=== PATIENT | female | born 1995 | race Caucasian/White ===

== ENCOUNTER 2017-10-25 09:31 | Emergency (ER) | payer OTHER ==
[~2017-10-25] VITALS: Ht 160 cm; Wt 49.9 kg
[~2017-10-25 09:31] MED LIST: AMOX1TAB25 PO; ASPI325T8 PO; DOXY50CA PO; IBUP400T18 PO; ONDA4TAB7 PO
[2017-10-25 09:39] VITALS: BP 168/89
[2017-10-25] MEDS ORDERED: IV NORMAL SALINE 1,000ML 1,000 ML IV SCH (09:57)
[2017-10-25] MEDS ORDERED: 0.9 % SODIUM CHLORIDE 10 ML DISP.SYRIN. IV PRN (10:00)
--- NOTE | 2017-10-25 10:00 | PHYS DOC ---
Past History Past Medical History: Asthma Past Surgical History: No Surgical History Smoking: Cigarettes Alcohol Use: Occasionally Drug Use: Benzodiazepine, Marijuana Adult General Chief Complaint Chief Complaint: nausea and vomiting HPI HPI 22-year-old female patient states she ate some sausage and egg at 2 AM and had multiple episodes of nonbloody vomiting with bile since 8 PM. Patient states she had 5 or 6 episodes of vomiting with epigastric cramping pain during episodes of vomiting with radiation to her back. Patient denies diarrhea and urinary symptom and and sick contacts and history of the same problem. Review of Systems Review of Systems Constitutional: Denies fever or chills [] Eyes: Denies change in visual acuity, redness, or eye pain [] HENT: Denies nasal congestion or sore throat [] Respiratory: Denies cough or shortness of breath [] Cardiovascular: No additional information not addressed in HPI [] GI: Reports abdominal pain, nausea, vomiting, denies bloody stools or diarrhea [ ] : Denies dysuria or hematuria [] Musculoskeletal: Denies back pain or joint pain [] Integument: Denies rash or skin lesions [] Neurologic: Denies headache, focal weakness or sensory changes [] Endocrine: Denies polyuria or polydipsia [] All other systems were reviewed and found to be within normal limits, except as documented in this note. Current Medications Current Medications Current Medications Medications (Trade) Dose Ordered Sig/Raissa Start Time Stop Time Status Last Admin Dose Admin Ondansetron HCl (Zofran) 4 mg 1X ONCE 10/25/17 10:00 10/25/17 10:01 UNV Sodium Chloride (Normal Saline Flush) 10 ml QSHIFT PRN 10/25/17 10:00 UNV Allergies Allergies Allergies Coded Allergies Type Severity Reaction Last Updated Verified No Known Drug Allergies 06/12/14 No Physical Exam Physical Exam Constitutional: Moderate distress, non-toxic appearance, anxious. [] HENT: Normocephalic, atraumatic, bilateral external ears normal, oropharynx moist, no oral exudates, nose normal. [] Eyes: PERRLA, EOMI, conjunctiva normal, no discharge. [] Neck: Normal range of motion, no tenderness, supple, no stridor. [] Cardiovascular:Heart rate regular rhythm, no murmur [] Lungs & Thorax: Bilateral breath sounds clear to auscultation [] Abdomen: Bowel sounds normal, soft, no tenderness, no masses, no pulsatile masses. [] Skin: Warm, dry, no erythema, no rash. [] Back: No tenderness, no CVA tenderness. [] Extremities: No tenderness, no cyanosis, no clubbing, ROM intact, no edema. [] Neurologic: Alert and oriented X 3, normal motor function, normal sensory function, no focal deficits noted. [] Psychologic: Anxious Current Patient Data Vital Signs Vital Signs Date Time Temp Pulse Resp B/P (MAP) Pulse Ox O2 Delivery O2 Flow Rate FiO2 10/25/17 09:39 97.8 98 16 100 Room Air Lab Results Laboratory Tests Test 10/25/17 09:46 POC Urine HCG, Qualitative hcg negative (Negative) EKG EKG [] Radiology/Procedures Radiology/Procedures []PATIENT: FRAN MONTE ACCOUNT: [id number] : 1995 LOCATION: ER AGE: 22 SEX: F EXAM STATUS: REG ER ORD. PHYSICIAN: RUTHANN MONTENEGRO MD REASON: similar pain, nausea and vomiting, leukocytosis PROCEDURE: CT ABDOMEN PELVIS WO CONTRAST Indication: Abdominal pain and vomiting for one day with leukocytosis. Technique: Axial images and coronal and sagittal reformatted images are provided. Comparison is from June 28, 2014. One or more of the following individualized dose reduction techniques were utilized for this examination: 1. Automated exposure control 2. Adjustment of the mA and/or kV according to patient size 3. Use of iterative reconstruction technique Findings: The lung bases are clear. There is no pleural effusion. The heart is not enlarged. Solid organ evaluation is limited without contrast. Liver, gallbladder, spleen, pancreas, and adrenals are all grossly unremarkable. There is a punctate nonobstructing right renal calculus. There is a 2 mm nonobstructing left renal calculus as well as additional punctate calculi on the left. Neither ureter is dilated or able to be followed in its entirety, no calculus along the expected course of either ureter is apparent. Aorta is normal caliber. Lack of IV or oral contrast limits evaluation of bowel. There is no small bowel obstruction or mural thickening. Appendix is not confidently visualized. Colon is grossly unremarkable. There is no bladder calculus. There is no adnexal mass. Free pelvic fluid is minimal and may be physiologic. Bony structures are intact. Impression: 1. No acute abdominal findings. 2. Nonobstructing renal calculi. No obstructing calculus. DICTATED AND SIGNED BY: YASIR DOVE MD DATE: 10/25/17 1143 CC: RUTHANN MONTENEGRO MD; ROLAND ROSALES ~ Course & Med Decision Making Course & Med Decision Making Pertinent Labs and Imaging studies reviewed. (See chart for details) Evaluation of patient in ER showed 22-year-old male patient with complaining of multiple episodes of vomiting and upper abdominal pain since this morning. Patient was anxious at arrival to ER and felt better with IV fluid and Zofran and Reglan. White count was 23,[address] abdomen and pelvis was unremarkable therefore accidental renal calculi. Patient had 1 episode of diarrhea while she was in ER. Patient tolerated oral intake. Plan discharge patient home to diagnose of acute gastroenteritis. Dragon Disclaimer Dragon Disclaimer This electronic medical record was generated, in whole or in part, using a voice recognition dictation system. Departure Departure: Impression: Primary Impression: Acute gastroenteritis Additional Impressions: Renal calculi Tobacco abuse Tobacco abuse counseling Marijuana abuse Leukocytosis Disposition: HOME, SELF-CARE (at 1158) Condition: IMPROVED Referrals: ROLAND ROSALES (PCP) Patient Instructions: Smoking Cessation, Viral Gastroenteritis Additional Instructions: Take liquid diet for the next 24 hours follow-up with your primary care physician in 2 or 3 days Return to emergency room if not getting better Problem Qualifiers RTUHANN MONTENEGRO MD Oct 25, 2017 09:59
[2017-10-25] MEDS ORDERED: ONDANSETRON PF 4 MG/2 ML VIAL. ONE (10:03)
[2017-10-25 10:14] LABS: BASO # 0.1 x10^3/uL (0.0-0.2); BASO % 0 % (0-3); EOS # 0.1 x10^3/uL (0.0-0.7); EOS % 0 % (0-3); HEMATOCRIT 50.2 % (36.0-47.0); HEMOGLOBIN 17.1 g/dL (12.0-15.5); LYMPH # 1.9 x10^3/uL (1.0-4.8); LYMPH % 8 % (24-48); MEAN CORPUSCULAR HEMOGLOBIN 32 pg (25-35); MEAN CORPUSCULAR HGB CONC 34 g/dL (31-37); MEAN CORPUSCULAR VOLUME 93 fL (79-100); MONO # 1.9 x10^3/uL (0.0-1.1); MONO % 8 % (0-9); NEUT # 19.6 x10^3uL (1.8-7.7); NEUT % 83 % (31-73); PLATELET COUNT 366 x10^3/uL (140-400); RED BLOOD COUNT 5.39 x10^6/uL (3.50-5.40); RED CELL DISTRIBUTION WIDTH 14.2 % (11.5-14.5); WHITE BLOOD COUNT 23.6 x10^3/uL (4.0-11.0)
[2017-10-25] MEDS ORDERED: ONDANSETRON PF 4 MG/2 ML VIAL. IV ONE (10:15)
[2017-10-25 10:22] LABS: BILIRUBIN,URINE NEG (NEG); CLARITY,URINE CLOUDY; COLOR,URINE YELLOW; GLUCOSE,URINE NEG (NEG)
[2017-10-25 10:23] LABS: AMORPHOUS SEDIMENT,UR PRESENT /HPF; BACTERIA,URINE 0 /HPF (0-FEW); NITRITE,URINE NEG (NEG); RBC,URINE 0 /HPF (0-2); SQUAMOUS EPITHELIAL CELL,UR OCC /LPF; UROBILINOGEN,URINE 0.2 mg/dL (0.2 mg/dL); WBC,URINE 0 /HPF (0-4)
[2017-10-25 10:40] LABS: AMPHETAMINE/METHAMPHETAMINE NEG (NEG); BARBITURATES NEG (NEG); BENZODIAZEPINES NEG (NEG); CANNABINOIDS POS (NEG); COCAINE NEG (NEG); METHADONE NEG (NEG); OPIATES NEG (NEG); PHENCYCLIDINE NEG (NEG)
[2017-10-25 10:41] LABS: ALBUMIN 4.6 g/dL (3.4-5.0); CREATININE 0.7 mg/dL (0.6-1.0); GFR 104.6; POTASSIUM 4.2 mmol/L (3.5-5.1); TOTAL BILIRUBIN 0.5 mg/dL (0.2-1.0); TOTAL PROTEIN 9.1 g/dL (6.4-8.2)
[2017-10-25] MEDS ORDERED: METOCLOPRAMIDE HCL 10 MG/2 ML VIAL. IV ONE (11:30)
--- NOTE | 2017-10-25 11:50 | RAD ---
Indication: Abdominal pain and vomiting for one day with leukocytosis. Technique: Axial images and coronal and sagittal reformatted images are provided. Comparison is from June 28, 2014. One or more of the following individualized dose reduction techniques were utilized for this examination: 1. Automated exposure control 2. Adjustment of the mA and/or kV according to patient size 3. Use of iterative reconstruction technique Findings: The lung bases are clear. There is no pleural effusion. The heart is not enlarged. Solid organ evaluation is limited without contrast. Liver, gallbladder, spleen, pancreas, and adrenals are all grossly unremarkable. There is a punctate nonobstructing right renal calculus. There is a 2 mm nonobstructing left renal calculus as well as additional punctate calculi on the left. Neither ureter is dilated or able to be followed in its entirety, no calculus along the expected course of either ureter is apparent. Aorta is normal caliber. Lack of IV or oral contrast limits evaluation of bowel. There is no small bowel obstruction or mural thickening. Appendix is not confidently visualized. Colon is grossly unremarkable. There is no bladder calculus. There is no adnexal mass. Free pelvic fluid is minimal and may be physiologic. Bony structures are intact. Impression: 1. No acute abdominal findings. 2. Nonobstructing renal calculi. No obstructing calculus.
[2017-10-25 11:53] LABS: % BANDS 12 % (0-9); % BASOS 1 % (0-3); % EOS 0 % (0-5); % LYMPHS 12 % (24-48); % MONOS 8 % (0-10); % SEGS 67 % (35-66); PLT ESTIMATE ADEQUATE (ADEQUATE); TOXIC GRANULATION PRESENT; TOXIC VACUOLATION PRESENT
[2017-10-25] MEDS ORDERED: ONDA4TAB10 SL (12:02)
== END 2017-10-25 12:41 | disposition home or self-care (01) ==
LOC: ER 09:31
DX: K52.89 Other specified noninfective gastroenteritis and colitis (principal); N20.0 Calculus of kidney; F17.210 Nicotine dependence, cigarettes, uncomplicated; D72.829 Elevated white blood cell count, unspecified; J45.909 Unspecified asthma, uncomplicated; F15.10 Other stimulant abuse, uncomplicated; F12.10 Cannabis abuse, uncomplicated; Z71.6 Tobacco abuse counseling
CPT/HCPCS: 36415; 74176; 80053; 80307; 81001; 81025; 83690; 85007; 85025; 96361; 96374; 96375; 99285; J2405; J2765; G0479; J7030

== ENCOUNTER 2018-01-31 17:19 | Emergency (ER) | payer OTHER ==
[~2018-01-31] VITALS: Ht 160 cm; Wt 49.9 kg
[~2018-01-31 17:19] MED LIST changes: +ONDA4TAB10 SL
[2018-01-31 17:22] VITALS: BP 157/75
[2018-01-31] MEDS ORDERED: HYDROcodone/APAP 5/325MG 1 TAB TABLET PO ONE (17:30)
--- NOTE | 2018-01-31 17:41 | PHYS DOC ---
Past History Past Medical History: Asthma Past Surgical History: No Surgical History Smoking: Cigarettes Alcohol Use: Occasionally Drug Use: Benzodiazepine, Marijuana Adult General Chief Complaint Chief Complaint: ABDOMINAL PAIN [facility] HPI 22-year-old female patient complaining of sharp left lower quadrant pain since yesterday that getting worse with urination. Patient complaining of urinary frequency and dysuria and radiation of pain to her pelvis and back. Patient rated her pain 9/10 and states she took Excedrin and Tylenol without improvement of her pain. Patient states she had negative home test today and her LMP was January 05. Patient complaining of nausea without vomiting and states she had a bowel movement today without change of her pain. Patient denies vaginal bleeding or discharge and pain during intercourse. Review of Systems Review of Systems Constitutional: Denies fever or chills [] Eyes: Denies change in visual acuity, redness, or eye pain [] HENT: Denies nasal congestion or sore throat [] Respiratory: Denies cough or shortness of breath [] Cardiovascular: No additional information not addressed in HPI [] GI: Reports abdominal pain, nausea, denies vomiting, bloody stools or diarrhea [ ] : Reports dysuria and urinary frequency Musculoskeletal: Denies back pain or joint pain [] Integument: Denies rash or skin lesions [] Neurologic: Denies headache, focal weakness or sensory changes [] Endocrine: Denies polyuria or polydipsia [] All other systems were reviewed and found to be within normal limits, except as documented in this note. Current Medications Current Medications Current Medications Medications (Trade) Dose Ordered Sig/Raissa Start Time Stop Time Status Last Admin Dose Admin Acetaminophen/ Hydrocodone Bitart (Lortab 5/325) 1 tab 1X ONCE 01/31/18 17:30 01/31/18 17:31 UNV Allergies Allergies Allergies Coded Allergies Type Severity Reaction Last Updated Verified No Known Drug Allergies 06/12/14 No Physical Exam Physical Exam Constitutional: Well developed, well nourished, moderate distress, non-toxic appearance. [] HENT: Normocephalic, atraumatic, oropharynx moist, no oral exudates, nose normal. [] Eyes: PERRLA, EOMI, conjunctiva normal, no discharge. [] Neck: Normal range of motion, no tenderness, supple, no stridor. [] Cardiovascular:Heart rate regular rhythm, no murmur [] Lungs & Thorax: Bilateral breath sounds clear to auscultation [] Abdomen: Bowel sounds normal, soft, no tenderness, no masses, no pulsatile masses. [] Skin: Warm, dry, no erythema, no rash. [] Back: No tenderness, no CVA tenderness. [] Extremities: No tenderness, no cyanosis, no clubbing, ROM intact, no edema. [] Neurologic: Alert and oriented X 3, normal motor function, normal sensory function, no focal deficits noted. [] Psychologic: Anxious, judgement normal, mood normal. [] EKG EKG [] Radiology/Procedures Radiology/Procedures [CT abdomen pelvis: 4 mm UV left UVJ stone or radiology report] Course & Med Decision Making Course & Med Decision Making Pertinent Labs and Imaging studies are pending. Patient care transferred to Dr. Jack at 1800 Lab work, imaging studies reviewed. Findings consistent with single acute uncomplicated distal left ureteral stone. Symptoms resolved while in the emergency department. Recommend continued supportive care with PCP follow-up. Return precautions reviewed. Dragon Disclaimer Dragon Disclaimer This electronic medical record was generated, in whole or in part, using a voice recognition dictation system. Departure Departure: Impression: Primary Impression: Ureteral stone Additional Impression: Left lower quadrant pain Disposition: 01 HOME, SELF-CARE Condition: GOOD Referrals: ROLAND ROSALES (PCP) Patient Instructions: Kidney Stones, [id number] Additional Instructions: You were evaluated emergency department for left pelvic pain. CT was performed and shows a 4 mm stone just above your bladder. Please increase fluids and strain urine for passage of stone. In the meantime, take pain and nausea medication and Flomax as directed. Follow up with your PCP in 2-3 days if symptoms persist. Return to the ED if new or worsening symptoms Problem Qualifiers RUTHANN MONTENEGRO MD January 31, 2018 17:41 MARYBETH JACK DO January 31, 2018 19:37
[2018-01-31] MEDS ORDERED: KETOROLAC 30 MG/ML VIAL. ONE (17:53)
[2018-01-31] MEDS ORDERED: IV NORMAL SALINE 1,000ML 1,000 ML IV ONE (18:00)
[2018-01-31] MEDS ORDERED: KETOROLAC 30 MG/ML VIAL. IV ONE (18:00)
[2018-01-31] MEDS ORDERED: ONDANSETRON PF 4 MG/2 ML VIAL. IV ONE ×2 (18:00→19:30)
[2018-01-31 18:23] LABS: BASO % 1 % (0-3); EOS % 0 % (0-3); HEMATOCRIT 38.9 % (36.0-47.0); HEMOGLOBIN 13.7 g/dL (12.0-15.5); LYMPH # 2.2 x10^3/uL (1.0-4.8); LYMPH % 29 % (24-48); MEAN CORPUSCULAR HEMOGLOBIN 32 pg (25-35); MEAN CORPUSCULAR HGB CONC 35 g/dL (31-37); MEAN CORPUSCULAR VOLUME 91 fL (79-100); MONO # 0.7 x10^3/uL (0.0-1.1); MONO % 10 % (0-9); NEUT # 4.6 x10^3uL (1.8-7.7); NEUT % 60 % (31-73); PLATELET COUNT 286 x10^3/uL (140-400); RED BLOOD COUNT 4.26 x10^6/uL (3.50-5.40); RED CELL DISTRIBUTION WIDTH 13.2 % (11.5-14.5); WHITE BLOOD COUNT 7.6 x10^3/uL (4.0-11.0)
[2018-01-31 18:38] LABS: ALBUMIN/GLOBULIN RATIO 1.2 (1.0-1.7); CALCIUM 8.7 mg/dL (8.5-10.1); CREATININE 0.6 mg/dL (0.6-1.0); POTASSIUM 3.4 mmol/L (3.5-5.1); TOTAL BILIRUBIN 0.8 mg/dL (0.2-1.0); TOTAL PROTEIN 7.3 g/dL (6.4-8.2)
--- NOTE | 2018-01-31 18:41 | RAD ---
Indication: Left lower quadrant pain, history of renal stones. Technique: Axial images and coronal and sagittal reformatted images are provided. Comparison is from October 25, 2017. One or more of the following individualized dose reduction techniques were utilized for this examination: 1. Automated exposure control 2. Adjustment of the mA and/or kV according to patient size 3. Use of iterative reconstruction technique Findings: Lung bases are clear. There is no pleural effusion. Heart is not enlarged. Solid organ evaluation is limited without contrast. Liver, gallbladder, spleen, pancreas, and adrenals are all grossly unremarkable. Nonobstructing calculus in the right kidney measures 3 mm. The left ureter is difficult to follow. There is no stranding of the left periureteral fat. There was a stone in the left kidney on prior study that is no longer visualized. There is a calculus in the pelvis on the left which could be at the UVJ and was not present on the September study, making this stone highly suspicious for a ureteral stone. This stone measures 4 mm. Again, the ureter is not clearly dilated proximal to this suspected ureteral stone. Aorta is normal caliber. Lack of oral contrast and IV contrast limits evaluation of bowel, there is no obvious bowel pathology. Appendix is probably visualized. Bladder is decompressed. There is no adnexal mass. Bony structures are intact. IMPRESSION: 1. There is a new stone in the pelvis on the left measuring 4 mm. This is suspected to be a left UVJ stone, although it is not possible to follow the left ureter on the current study. The left ureter is not clearly dilated. 2. There is a nonobstructing 3 mm right renal stone. Electronically signed by: Ajay Medeiros MD (01/31/2018 6:38 PM) [facility]
[2018-01-31 20:24] LABS: CLARITY,URINE TURBID; COLOR,URINE AMBER; GLUCOSE,URINE NEG (NEG)
[2018-01-31 20:25] LABS: BILIRUBIN,URINE SMALL (NEG); NITRITE,URINE NEG (NEG); UROBILINOGEN,URINE 0.2 mg/dL (0.2 mg/dL)
== END 2018-01-31 20:02 | disposition home or self-care (01) ==
LOC: ER 17:19
DX: N20.1 Calculus of ureter (principal); J45.909 Unspecified asthma, uncomplicated; F17.210 Nicotine dependence, cigarettes, uncomplicated; F12.10 Cannabis abuse, uncomplicated; F19.10 Other psychoactive substance abuse, uncomplicated
CPT/HCPCS: 36415; 74176; 80053; 81003; 81025; 83690; 85025; 96374; 96375; 96376; 99285; J1885; J2405; J3010; J7030

== ENCOUNTER 2018-06-14 11:12 | Emergency (ER) | payer OTHER ==
--- NOTE | 2018-06-14 11:42 | PHYS DOC ---
Past History Past Medical History: Endometriosis Past Surgical History: No Surgical History Smoking: Cigarettes Alcohol Use: None Drug Use: Marijuana Adult General Chief Complaint Chief Complaint: ABDOMINAL PAIN IN HPI HPI Patient is a 23-year-old white female, prima gravid, who states she is approximately 5 months , who presents to the emergency department for evaluation. She states she awakened with left upper quadrant abdominal pain this morning. She has not had any vomiting. She has had she has had some nausea throughout her , but has been taking anti-medic prescribed by her OB doctor, which has been helping her symptoms. She has not had any urinary symptoms. She states she has had gallbladder problems in the past and had evaluation of her gallbladder, but her symptoms were right-sided dose prior episodes. She has not noticed any alleviating or exacerbating factors to her symptoms. The patient has not had any lower abdominal pain or pelvic pain, vaginal bleeding, or discharge. Review of Systems Review of Systems Constitutional: Denies fever or chills [] Eyes: Denies change in visual acuity, redness, or eye pain [] HENT: Denies nasal congestion or sore throat [] Respiratory: Denies cough or shortness of breath [] Cardiovascular: The patient denies any shortness of breath, chest pain, palpitations, or orthopnea [] GI: No additional information not addressed in HPI [] : Denies dysuria or hematuria [] Musculoskeletal: Denies back pain or joint pain [] Integument: Denies rash or skin lesions [] Neurologic: Denies headache, focal weakness or sensory changes [] Endocrine: Denies polyuria or polydipsia [] All other systems were reviewed and found to be within normal limits, except as documented in this note. Allergies Allergies Allergies Coded Allergies Type Severity Reaction Last Updated Verified No Known Drug Allergies 06/12/14 No Physical Exam Physical Exam PHYSICAL EXAM: CONSTITUTIONAL: Well developed, well nourished HEAD: normocephalic, atraumatic EENT: PERRL, EOMI. Conjunctivae normal color, sclerae non-icteric; moist mucous membranes. NECK: Supple, non-tender; no meningismus. LUNGS: Lungs CTA, breathing even and unlabored. Normal air movement. HEART: Regular rate and rhythm, no murmur CHEST: No deformity; non-tender ABDOMEN: The abdomen is soft, there is mild epigastric tenderness to palpation in left upper abdominal tenderness to palpation, the right upper quadrant is nontender. The lower abdomen is soft and nontender. The uterus is palpable in the lower abdomen and is non-tender, no masses or bruits. Normal bowel sounds are present. EXTREM: Normal ROM; no deformity, no calf tenderness. Normal pulses palpable in all extremities. There is no pedal edema. SKIN: No rash; no diaphoresis NEURO: Alert; normal speech and cognition; CN's grossly intact; strength grossly intact without focal deficit. BACK: No CVA TTP. Current Patient Data Lab Results Laboratory Tests Test 06/14/18 11:55 White Blood Count 7.3 x10^3/uL Red Blood Count 3.68 x10^6/uL Hemoglobin 11.9 g/dL Hematocrit 34.0 % Mean Corpuscular Volume 92 fL Mean Corpuscular Hemoglobin 32 pg Mean Corpuscular Hemoglobin Concent 35 g/dL Red Cell Distribution Width 13.2 % Platelet Count 214 x10^3/uL Neutrophils (%) (Auto) 74 % Lymphocytes (%) (Auto) 16 % Monocytes (%) (Auto) 9 % Eosinophils (%) (Auto) 1 % Basophils (%) (Auto) 0 % Neutrophils # (Auto) 5.4 x10^3uL Lymphocytes # (Auto) 1.2 x10^3/uL Monocytes # (Auto) 0.6 x10^3/uL Eosinophils # (Auto) 0.1 x10^3/uL Basophils # (Auto) 0.0 x10^3/uL Urine Collection Type Void Urine Color Yellow Urine Clarity Cloudy Urine pH 8.5 Urine Specific Center 1.015 Urine Protein Neg Urine Glucose (UA) Neg mg/dL Urine Ketones (Stick) Neg mg/dL Urine Blood Neg Urine Nitrite Neg Urine Bilirubin Neg Urine Urobilinogen Dipstick 0.2 mg/dL Urine Leukocyte Esterase Neg Urine RBC 1-2 /HPF Urine WBC 1-4 /HPF Urine Squamous Epithelial Cells Many /LPF Urine Bacteria Few /HPF Urine Hyaline Casts Occ /HPF Urine Mucus Slight /LPF Sodium Level 137 mmol/L Potassium Level 3.6 mmol/L Chloride Level 105 mmol/L Carbon Dioxide Level 25 mmol/L Anion Gap 7 Blood Urea Nitrogen 6 mg/dL Creatinine 0.5 mg/dL Estimated GFR (Cockcroft-Gault) 152.9 BUN/Creatinine Ratio 12 Glucose Level 90 mg/dL Calcium Level 8.7 mg/dL Total Bilirubin 0.2 mg/dL Aspartate Amino Transf (AST/SGOT) 18 U/L Alanine Aminotransferase (ALT/SGPT) 25 U/L Alkaline Phosphatase 63 U/L Total Protein 6.4 g/dL Albumin 3.0 g/dL Albumin/Globulin Ratio 0.9 Lipase 108 U/L Current Medications Medications (Trade) Dose Ordered Sig/Raissa Route PRN Reason Start Time Stop Time Status Last Admin Dose Admin Multi-Ingredient Mouthwash/Gargle (Gi Cocktail) 20 ml 1X ONCE PO 06/14/18 12:00 06/14/18 12:01 DC 06/14/18 11:51 EKG EKG [] Radiology/Procedures Radiology/Procedures [] Course & Med Decision Making Course & Med Decision Making Pertinent Lab studies reviewed. (See chart for details) [12:45 PM: The patient's condition remained stable. She had improvement in her symptoms with GI cocktail. She has not eaten anything today suspect this might be contributing to her symptoms, and I encouraged her to do so after hospital discharge. I discussed importance of close follow-up and return precautions, use of acetaminophen as needed for pain, and possible therapeutic trial of antiacids if symptoms persist.] Dragon Disclaimer Dragon Disclaimer This electronic medical record was generated, in whole or in part, using a voice recognition dictation system. Departure Departure: Impression: Primary Impression: Left upper quadrant abdominal pain of unknown etiology Additional Impression: Disposition: HOME, SELF-CARE Condition: STABLE Referrals: ROLAND ROSALES (PCP) Patient Instructions: Abdominal Pain, Gastritis, Adult Problem Qualifiers SANTY HUGGINS MD Jun 14, 2018 11:42
[2018-06-14] MEDS ORDERED: LIDO:MAALOX 1:1 20 ML SINGLE DOSE. PO ONE (12:00)
[2018-06-14 12:09] LABS: BASO % 0 % (0-3); EOS # 0.1 x10^3/uL (0.0-0.7); EOS % 1 % (0-3); HEMOGLOBIN 11.9 g/dL (12.0-15.5); LYMPH # 1.2 x10^3/uL (1.0-4.8); LYMPH % 16 % (24-48); MEAN CORPUSCULAR HEMOGLOBIN 32 pg (25-35); MEAN CORPUSCULAR HGB CONC 35 g/dL (31-37); MEAN CORPUSCULAR VOLUME 92 fL (79-100); MONO # 0.6 x10^3/uL (0.0-1.1); MONO % 9 % (0-9); NEUT # 5.4 x10^3uL (1.8-7.7); NEUT % 74 % (31-73); PLATELET COUNT 214 x10^3/uL (140-400); RED BLOOD COUNT 3.68 x10^6/uL (3.50-5.40); RED CELL DISTRIBUTION WIDTH 13.2 % (11.5-14.5); WHITE BLOOD COUNT 7.3 x10^3/uL (4.0-11.0)
[2018-06-14 12:17] LABS: BACTERIA,URINE FEW /HPF (0-FEW); BILIRUBIN,URINE NEG (NEG); CLARITY,URINE CLOUDY; COLOR,URINE YELLOW; GLUCOSE,URINE NEG (NEG); NITRITE,URINE NEG (NEG); SQUAMOUS EPITHELIAL CELL,UR MANY /LPF; UROBILINOGEN,URINE 0.2 mg/dL (0.2 mg/dL)
[2018-06-14 12:18] LABS: HYALINE CASTS, URINE OCC /HPF
[2018-06-14 12:23] LABS: ALBUMIN/GLOBULIN RATIO 0.9 (1.0-1.7); CALCIUM 8.7 mg/dL (8.5-10.1); CREATININE 0.5 mg/dL (0.6-1.0); GFR 152.9; POTASSIUM 3.6 mmol/L (3.5-5.1); TOTAL BILIRUBIN 0.2 mg/dL (0.2-1.0); TOTAL PROTEIN 6.4 g/dL (6.4-8.2)
[2018-06-14 12:54] VITALS: BP 121/60
== END 2018-06-14 12:54 | disposition home or self-care (01) ==
LOC: ER 11:12
DX: O26.892 Other specified pregnancy related conditions, second trimester (principal); R10.12 Left upper quadrant pain; R11.0 Nausea; O99.332 Smoking (tobacco) complicating pregnancy, second trimester; Z3A.00 Weeks of gestation of pregnancy not specified
CPT/HCPCS: 36415; 80053; 81001; 83690; 85025; 99284

== ENCOUNTER 2019-06-18 15:21 | Emergency (ER) | payer OTHER ==
[2019-06-18 15:45] VITALS: BP 138/66
--- NOTE | 2019-06-18 15:55 | PHYS DOC ---
Past History Past Medical History: No Pertinent History Past Surgical History: No Surgical History Smoking: Cigarettes Alcohol Use: None Drug Use: None Adult General Chief Complaint Chief Complaint: VAGINAL BLEEDING HPI HPI Patient is a 24-year-old female presents with vaginal bleeding that started just prior to arrival. Patient is �0�1�1 with a miscarriage of her first . She is approximately 12 weeks . She has been having lower abdominal cramping for the past day. She has occasional nausea but it is improved with her nausea medicines. No previous surgical history. Bleeding is improving over time. There was no tissue or clots in the blood. No dysuria or hematuria. No fever. No trauma. Cramping is mild to moderate in intensity.[] Review of Systems Review of Systems Constitutional: Denies fever or chills [] Eyes: Denies change in visual acuity, redness, or eye pain [] HENT: Denies nasal congestion or sore throat [] Respiratory: Denies cough or shortness of breath [] Cardiovascular: No chest pain or palpitations[] GI: Denies abdominal pain, nausea, vomiting, bloody stools or diarrhea [] : Denies dysuria or hematuria, see history of present illness [] Musculoskeletal: Denies back pain or joint pain [] Integument: Denies rash or skin lesions [] Neurologic: Denies headache, focal weakness or sensory changes [] Endocrine: Denies polyuria or polydipsia [] All other systems were reviewed and found to be within normal limits, except as documented in this note. Allergies Allergies Allergies Coded Allergies Type Severity Reaction Last Updated Verified No Known Drug Allergies 06/12/14 No Physical Exam Physical Exam Constitutional: Well developed, well nourished, no acute distress, non-toxic appearance. [] HENT: Normocephalic, atraumatic, bilateral external ears normal, oropharynx moist, no oral exudates, nose normal. [] Eyes: PERRLA, EOMI, conjunctiva normal, no discharge. [] Neck: Normal range of motion, no tenderness, supple, no stridor. [] Cardiovascular:Heart rate regular rhythm, no murmur [] Lungs & Thorax: Bilateral breath sounds clear to auscultation [] Abdomen: Bowel sounds normal, soft, no tenderness, fundus just above the pelvic inlet, no pulsatile masses. exam performed with [employer] regional sales manager: External genitalia, Elnora's glands, urethra, Bartholin's glands: normal, no rash. Vaginal vault: No blood or tissue in the vault, no lesions. Cervix: Parous os, no cervical motion tenderness, os is closed, no blood from the os[] Skin: Warm, dry, no erythema, no rash. [] Back: No tenderness, no CVA tenderness. [] Extremities: No tenderness, no cyanosis, no clubbing, ROM intact, no edema. [] Neurologic: Alert and oriented X 3, normal motor function, normal sensory function, no focal deficits noted. [] Psychologic: Affect normal, judgement normal, mood normal. [] Current Patient Data Vital Signs Vital Signs Date Time Temp Pulse Resp B/P (MAP) Pulse Ox O2 Delivery O2 Flow Rate FiO2 06/18/19 15:45 96 18 99 Room Air EKG EKG [] Radiology/Procedures Radiology/Procedures PROCEDURE: PREG 1ST TRIMESTER Obstetrical ultrasound 06/18/2019. Reason for exam: Vaginal bleeding. FINDINGS: A living intrauterine fetus is demonstrated, showing heart rate of 163 bpm. No gross anomaly is seen. Amniotic fluid volume appears appropriate. The placenta is located posteriorly and does not reach the cervix. No retroplacental bleeding is seen. There is no evidence of placenta previa. Cervical length is about 4.5 cm. There may be a trace of blood in the cervical canal. The ovaries appear normal. There is no apparent adnexal mass or free fluid. The following age estimates were obtained: BPD: 13 weeks 4 days. HC: 13 weeks 4 days. AC: 13 weeks 3 days. FL: 12 weeks 5 days. Average ultrasound estimated is 13 weeks 2 days, giving TANA of 12/22/2019. IMPRESSION: Living intrauterine fetus. No identified cause for bleeding. [] Course & Med Decision Making Course & Med Decision Making Pertinent Labs and Imaging studies reviewed. (See chart for details) ED course: Patient arrived, was placed in bed, and tolerated exam well. She was transported to and from [facility] with any complications. After the return of laboratory and imaging findings, these were discussed with the patient who voiced understanding. All questions were answered. She was discharged in improved condition. Medical decision making: There is no evidence of an ectopic , no evidence of placenta previa or abruption. No evidence of Rh incompatibility, no evidence of HELLP syndrome, no missed miscarriage, no blood was noted in the vaginal vault.[] Dragon Disclaimer Dragon Disclaimer This electronic medical record was generated, in whole or in part, using a voice recognition dictation system. Departure Departure: Impression: Primary Impression: Threatened miscarriage Disposition: HOME, SELF-CARE Condition: IMPROVED Referrals: ROLAND ROSALES (PCP) Follow-up in 2 days Patient Instructions: Threatened Miscarriage Additional Instructions: Follow-up with your regular doctor in 2 days. Return to the ER if increasing bleeding or any other concerns. Scripts Acetaminophen (TYLENOL) 325 Mg Tablet 1-2 TAB PO QID for PAIN, #60 TAB 0 Refills Prov: LEV CHRISTIAN DO 06/18/19 LEV CHRISTIAN DO Jun 18, 2019 15:55
[2019-06-18] MEDS ORDERED: IV NORMAL SALINE 500ML 500 ML IV SCH (16:00)
[2019-06-18 16:34] LABS: BASO % 0 % (0-3); EOS # 0.1 x10^3/uL (0.0-0.7); EOS % 1 % (0-3); HEMATOCRIT 35.5 % (36.0-47.0); HEMOGLOBIN 12.3 g/dL (12.0-15.5); LYMPH # 1.6 x10^3/uL (1.0-4.8); LYMPH % 21 % (24-48); MEAN CORPUSCULAR HEMOGLOBIN 31 pg (25-35); MEAN CORPUSCULAR HGB CONC 35 g/dL (31-37); MEAN CORPUSCULAR VOLUME 90 fL (79-100); MONO # 0.6 x10^3/uL (0.0-1.1); MONO % 9 % (0-9); NEUT # 5.2 x10^3uL (1.8-7.7); NEUT % 69 % (31-73); PLATELET COUNT 267 x10^3/uL (140-400); RED BLOOD COUNT 3.94 x10^6/uL (3.50-5.40); RED CELL DISTRIBUTION WIDTH 13.1 % (11.5-14.5); WHITE BLOOD COUNT 7.5 x10^3/uL (4.0-11.0)
[2019-06-18 16:43] LABS: ALBUMIN 3.3 g/dL (3.4-5.0); CREATININE 0.5 mg/dL (0.6-1.0); GFR 151.6; POTASSIUM 3.4 mmol/L (3.5-5.1); TOTAL BILIRUBIN 0.2 mg/dL (0.2-1.0); TOTAL PROTEIN 6.7 g/dL (6.4-8.2)
--- NOTE | 2019-06-18 17:06 | RAD ---
Obstetrical ultrasound 06/18/2019. Reason for exam: Vaginal bleeding. FINDINGS: A living intrauterine fetus is demonstrated, showing heart rate of 163 bpm. No gross anomaly is seen. Amniotic fluid volume appears appropriate. The placenta is located posteriorly and does not reach the cervix. No retroplacental bleeding is seen. There is no evidence of placenta previa. Cervical length is about 4.5 cm. There may be a trace of blood in the cervical canal. The ovaries appear normal. There is no apparent adnexal mass or free fluid. The following age estimates were obtained: BPD: 13 weeks 4 days. HC: 13 weeks 4 days. AC: 13 weeks 3 days. FL: 12 weeks 5 days. Average ultrasound estimated is 13 weeks 2 days, giving TANA of 12/22/2019. IMPRESSION: Living intrauterine fetus. No identified cause for bleeding. Electronically signed by: Alexis Pacheco Jr., MD (06/18/2019 5:03 PM) [facility]
[2019-06-18] MEDS ORDERED: ACET325T9 PO (17:13)
[2019-06-18 17:46] LABS: BILIRUBIN,URINE NEG (NEG); CLARITY,URINE CLEAR; COLOR,URINE YELLOW; GLUCOSE,URINE NEG (NEG)
[2019-06-18 17:47] LABS: UROBILINOGEN,URINE 0.2 mg/dL (0.2 mg/dL)
[2019-06-18 17:48] LABS: BACTERIA,URINE FEW /HPF (0-FEW); NITRITE,URINE NEG (NEG); RBC,URINE OCC /HPF (0-2); SQUAMOUS EPITHELIAL CELL,UR FEW /LPF
== END 2019-06-18 17:20 | disposition home or self-care (01) ==
LOC: ER 15:21
DX: O20.0 Threatened abortion (principal); O99.331 Smoking (tobacco) complicating pregnancy, first trimester; Z3A.12 12 weeks gestation of pregnancy
CPT/HCPCS: 36415; 76801; 80053; 81001; 84702; 85025; 86900; 86901; 87491; 87591; 99285; J7040; Q0111

== ENCOUNTER 2019-08-05 03:58 | Emergency (ER) | payer OTHER ==
[~2019-08-05] VITALS: Ht 160 cm; Wt 48.1 kg
[~2019-08-05 03:58] MED LIST changes: +ACET325T9 PO
--- NOTE | 2019-08-05 04:40 | PHYS DOC ---
Past History Past Medical History: No Pertinent History Past Surgical History: No Surgical History Smoking: Cigarettes Alcohol Use: None Drug Use: None Adult General Chief Complaint Chief Complaint: ABDOMINAL PAIN IN HPI HPI Patient is a 24-year-old female presents with cramping lower abdominal pain that started approximately 1300 yesterday. Worsening over time. She is starting to have some spotting and drainage. She says it feels like previous contractions. She is Patient is with a miscarriage of her first . She was seen by me approximately 7 weeks ago, had an ultrasound performed due to vaginal bleeding that showed she was 13 weeks 4 days on June 18, 2019. She denies any previous abdominal surgeries. Denies any trauma. Denies any fever. Denies any nausea or vomiting. She gets her OB care performed at [facility] by Dr. Thomas. Pain is waxing and waning, crampy in nature, occurring approximately every 10 minutes currently. She also reports not feeling the baby move for the past several hours.[] Review of Systems Review of Systems Constitutional: Denies fever or chills [] Eyes: Denies change in visual acuity, redness, or eye pain [] HENT: Denies nasal congestion or sore throat [] Respiratory: Denies cough or shortness of breath [] Cardiovascular: No chest pain or palpitations[] GI: Denies abdominal pain, nausea, vomiting, bloody stools or diarrhea [] : Denies dysuria or hematuria, see history of present illness [] Musculoskeletal: Denies back pain or joint pain [] Integument: Denies rash or skin lesions [] Neurologic: Denies headache, focal weakness or sensory changes [] Endocrine: Denies polyuria or polydipsia [] All other systems were reviewed and found to be within normal limits, except as documented in this note. Allergies Allergies Allergies Coded Allergies Type Severity Reaction Last Updated Verified No Known Drug Allergies 06/12/14 No Physical Exam Physical Exam Constitutional: Well developed, well nourished, no acute distress, non-toxic appearance. [] HENT: Normocephalic, atraumatic, bilateral external ears normal, oropharynx moist, no oral exudates, nose normal. [] Eyes: PERRLA, EOMI, conjunctiva normal, no discharge. [] Neck: Normal range of motion, no tenderness, supple, no stridor. [] Cardiovascular:Heart rate regular rhythm, no murmur [] Lungs & Thorax: Bilateral breath sounds clear to auscultation [] Abdomen: Bowel sounds normal, soft, no tenderness, fundus at the level of the umbilicus, heart tones in the 150s to 160s. No pulsatile masses. Pelvic exam performed with podiatric assistant: External genitalia, Lazy Y U's glands, urethra, and Bartholin's glands: No lesions, no bleeding. Vaginal vault, patient not tolerating exam due to tenderness in the perineum, unable to assess cervix or any blood in the vault.[] Skin: Warm, dry, no erythema, no rash. [] Back: No tenderness, no CVA tenderness. [] Extremities: No tenderness, no cyanosis, no clubbing, ROM intact, no edema. [] Neurologic: Alert and oriented X 3, normal motor function, normal sensory function, no focal deficits noted. [] Psychologic: Affect normal, judgement normal, mood normal. [] Current Patient Data Vital Signs Vital Signs Date Time Temp Pulse Resp B/P (MAP) Pulse Ox O2 Delivery O2 Flow Rate FiO2 08/05/19 04:04 98.3 108 16 98 Room Air EKG EKG [] Radiology/Procedures Radiology/Procedures [] Course & Med Decision Making Course & Med Decision Making Pertinent Labs and Imaging studies reviewed. (See chart for details) ED course: Patient arrived, was placed in bed, and tolerated exam well. IV access was established. heart tones were obtained. Due to the patient being over 20 weeks by ultrasound performed on June 18 that showed she was 13 weeks 4 days at that time, consultation was made with [facility] since that is where she receives her care. Dr. Willis marcelino accepted. At approximately 5 AM, there was a gush of fluid from the vaginal vault. Called back to Dr. Willams to see if he wanted to have any tocolytic agents administered. He deferred. Medical decision making: Patient slightly over 20 weeks based on previous ultrasound with pain and cramping and spotting similar to her previous where she delivered, and had a short labor course. Concerned about her being in labor. Her blood type is O+ based on the visit of 06/18/2019. She is being transferred for higher level of care.[] Dragon Disclaimer Dragon Disclaimer This electronic medical record was generated, in whole or in part, using a voice recognition dictation system. Departure Departure: Impression: Primary Impression: Abdominal pain during intrauterine Disposition: 05 TRANSFER OTHER Condition: IMPROVED Referrals: ROLAND ROSALES (PCP) LEV CHRISTIAN DO Aug 05, 2019 04:40
[2019-08-05 04:53] VITALS: BP 112/64
== END 2019-08-05 05:06 | disposition short-term general hospital (02) ==
LOC: ER 03:58
DX: O26.892 Other specified pregnancy related conditions, second trimester (principal); R10.30 Lower abdominal pain, unspecified; O99.332 Smoking (tobacco) complicating pregnancy, second trimester; Z3A.21 21 weeks gestation of pregnancy
CPT/HCPCS: 99285

== ENCOUNTER 2020-01-22 17:14 | Emergency (ER) | payer OTHER ==
[~2020-01-22] VITALS: Ht 160 cm; Wt 54.0 kg
[2020-01-22 17:26] VITALS: BP 136/57
--- NOTE | 2020-01-22 17:33 | PHYS DOC ---
Past History Past Medical History: No Pertinent History Past Surgical History: No Surgical History Smoking: Cigarettes Alcohol Use: None Drug Use: None General Adult EDM: Chief Complaint: HAND PROBLEM HPI: HPI: Patient is a 24-year-old female who presented to ER today for evaluation of left hand injury. Patient says she was using an ax to cut a piece of wood off of her couch when a piece of wood flew off and hit her left hand. There was a piece of nail in the wood and it scratched her left middle finger. Patient had tetanus shot 2 years ago. Review of Systems: Review of Systems: Constitutional: Denies fever or chills Eyes: Denies change in visual acuity HENT: Denies nasal congestion or sore throat Respiratory: Denies cough or shortness of breath Cardiovascular: Denies chest pain or edema GI: Denies abdominal pain, nausea, vomiting, bloody stools or diarrhea : Denies dysuria Musculoskeletal: Denies back pain or joint pain Integument: Denies rash Neurologic: Denies headache, focal weakness or sensory changes Endocrine: Denies polyuria or polydipsia Lymphatic: Denies swollen glands Psychiatric: Denies depression or anxiety Heart Score: Risk Factors: Risk Factors: DM, Current or recent (<one month) smoker, HTN, HLP, family history of CAD, obesity. Risk Scores: Score 0 - 3: 2.5% MACE over next 6 weeks - Discharge Home Score 4 - 6: 20.3% MACE over next 6 weeks - Admit for Clinical Observation Score 7 - 10: 72.7% MACE over next 6 weeks - Early Invasive Strategies Allergies: Allergies: Allergies Coded Allergies Type Severity Reaction Last Updated Verified No Known Drug Allergies 06/12/14 No Physical Exam: PE: Constitutional: Well developed, well nourished, no acute distress, non-toxic a ppearance. [] HENT: Normocephalic, atraumatic, bilateral external ears normal, oropharynx moist, no oral exudates, nose normal. [] Eyes: PERRLA, EOMI, conjunctiva normal, no discharge. [] Neck: Normal range of motion, no tenderness, supple, no stridor. [] Cardiovascular:Heart rate regular rhythm, no murmur [] Lungs & Thorax: Bilateral breath sounds clear to auscultation [] Abdomen: Bowel sounds normal, soft, no tenderness, no masses, no pulsatile masses. [] Skin:superficial skin abrasion on the extensor surface of left middle finger, no tendon injury, no active bleeding. Back: No tenderness, no CVA tenderness. [] Extremities: No tenderness, no cyanosis, no clubbing, ROM intact, no edema. [] Neurologic: Alert and oriented X 3, normal motor function, normal sensory function, no focal deficits noted. [] Psychologic: Affect normal, judgement normal, mood normal. [] EKG: EKG: [] Radiology/Procedures: Radiology/Procedures: [][place] [address] IMAGING REPORT Signed PATIENT: FRAN MONTE ACCOUNT: [id number] : 1995 LOCATION: ER AGE: 24 SEX: F EXAM STATUS: REG ER ORD. PHYSICIAN: CHRISTIAN SULLIVAN DO REASON: LEFT HAND INJURIED BY PIECE OF WOOD PROCEDURE: HAND LEFT 3V Examination: 3 views of the left hand HISTORY: History of injury by piece of wood. COMPARISON: None available FINDINGS: The alignment of the metacarpophalangeal joints, interphalangeal joints grossly appears unremarkable. There is no obvious acute fracture or dislocation identified. IMPRESSION: No acute osseous findings. Electronically signed by: Noé Goins MD (01/22/2020 5:53 PM) [id number] DICTATED AND SIGNED BY: NOÉ GOINS MD DATE: 01/22/20 1753 CC: CHRISTIAN SULLIVAN DO; ROLAND ROSALES ~ Course & Med Decision Making: Course & Med Decision Making Pertinent Labs and Imaging studies reviewed. (See chart for details) The wound was cleaned and explored, no foreign body, no tendon injury. Dragon Disclaimer: Dragon Disclaimer: This electronic medical record was generated, in whole or in part, using a voice recognition dictation system. Departure Departure: Impression: Primary Impression: Skin abrasion Additional Impression: Contusion of finger, left Disposition: 01 HOME/RESIDENCE PRIOR TO ADM Condition: STABLE Referrals: ROLAND ROSALES (PCP) follow up with your doctor next week Patient Instructions: Abrasions, Contusion Scripts Cephalexin (KEFLEX) 500 Mg Capsule 1 CAP PO TID for skin infection for 7 Days, #21 CAP 0 Refills Prov: CHRISTIAN SULLIVAN DO 01/22/20 CHRISTIAN SULLIVAN DO Jan 22, 2020 17:33
[2020-01-22] MEDS ORDERED: ACETAMINOPHEN 500 MG TABLET PO ONE (17:45)
[2020-01-22] MEDS ORDERED: IBUPROFEN 600 MG TABLET. PO ONE (17:45)
[2020-01-22] MEDS ORDERED: CEPHALEXIN 250 MG CAPSULE PO ONE (17:45)
--- NOTE | 2020-01-22 17:56 | RAD ---
Examination: 3 views of the left hand HISTORY: History of injury by piece of wood. COMPARISON: None available FINDINGS: The alignment of the metacarpophalangeal joints, interphalangeal joints grossly appears unremarkable. There is no obvious acute fracture or dislocation identified. IMPRESSION: No acute osseous findings. Electronically signed by: Noé Goins MD (01/22/2020 5:53 PM) [id number]
[2020-01-22] MEDS ORDERED: CEPH-264 PO (18:14)
== END 2020-01-22 18:20 | disposition home or self-care (01) ==
LOC: ER 17:14
DX: S60.032A Contusion of left middle finger without damage to nail, initial encounter (principal); F17.210 Nicotine dependence, cigarettes, uncomplicated; W45.8XXA Other foreign body or object entering through skin, initial encounter; Y93.89 Activity, other specified; Y92.89 Other specified places as the place of occurrence of the external cause; Y99.8 Other external cause status
CPT/HCPCS: 73130; 99283

== ENCOUNTER 2020-10-13 09:48 | Emergency (ER) | payer OTHER ==
[~2020-10-13] VITALS: Ht 160 cm; Wt 48.0 kg
[~2020-10-13 09:48] MED LIST changes: +CEPH-264 PO
[2020-10-13] MEDS ORDERED: ONDANSETRON PF 4 MG/2 ML VIAL. IVP ONE ×2 (10:30→11:45)
[2020-10-13] MEDS ORDERED: IV NORMAL SALINE 1,000ML 1,000 ML IV ONE (10:30)
[2020-10-13 10:37] LABS: BASO # 0.1 x10^3/uL (0.0-0.2); BASO % 0 % (0-3); EOS # 0.1 x10^3/uL (0.0-0.7); EOS % 0 % (0-3); HEMATOCRIT 46.7 % (36.0-47.0); HEMOGLOBIN 15.7 g/dL (12.0-15.5); LYMPH # 0.6 x10^3/uL (1.0-4.8); LYMPH % 3 % (24-48); MEAN CORPUSCULAR HEMOGLOBIN 31 pg (25-35); MEAN CORPUSCULAR HGB CONC 34 g/dL (31-37); MEAN CORPUSCULAR VOLUME 93 fL (79-100); MONO # 0.9 x10^3/uL (0.0-1.1); MONO % 5 % (0-9); NEUT # 17.1 x10^3uL (1.8-7.7); NEUT % 92 % (31-73); PLATELET COUNT 298 x10^3/uL (140-400); RED BLOOD COUNT 5.03 x10^6/uL (3.50-5.40); RED CELL DISTRIBUTION WIDTH 12.9 % (11.5-14.5); WHITE BLOOD COUNT 18.7 x10^3/uL (4.0-11.0)
--- NOTE | 2020-10-13 10:53 | PHYS DOC ---
Past History Past Medical History: No Pertinent History Past Surgical History: No Surgical History Smoking: Cigarettes Alcohol Use: Rarely Drug Use: None General Adult EDM: Chief Complaint: NAUSEA/VOMITING/DIARRHEA HPI: HPI: Patient is a 25-year-old female coming in for a few hours of vomiting and diarrhea. Patient states emesis is nonbloody nonbilious, no blood or tarry diarrhea. Denies any fevers. Last p.o. intake was yesterday. Notes recent travel, raw foods or antibiotic use. Patient states her daughter had diarrhea a few days ago. Denies fevers, cough, changes in urination. Describes abdominal pain as generalized that moves around and crampy Review of Systems: Review of Systems: All other systems within normal limits except for as noted in the HPI Current Medications: Current Meds: Current Medications Medications (Trade) Dose Ordered Sig/Raissa Start Time Stop Time Status Last Admin Dose Admin Ondansetron HCl (Zofran) 4 mg 1X ONCE 10/13/20 10:30 10/13/20 10:31 DC 10/13/20 10:39 4 MG Sodium Chloride 1,000 ml @ 1,000 mls/hr 1X ONCE 10/13/20 10:30 10/13/20 11:29 10/13/20 10:38 1,000 MLS/HR Allergies: Allergies: Allergies Uncoded Allergies Type Severity Reaction Last Updated Verified DAIRY Allergy Unknown 10/13/20 Physical Exam: PE: Constitutional: Well developed, well nourished, no acute distress, non-toxic appearance. [] HENT: Normocephalic, atraumatic, bilateral external ears normal, nose normal. [] Eyes: PERRLA, conjunctiva normal, no discharge. [] Neck: No rigidity, supple, no stridor. [] Cardiovascular: Regular rate and rhythm, brisk cap refill [] Lungs & Thorax: Non labored symmetric respirations, no tachypnea or respiratory distress [] Abdomen: Soft, nondistended, mild tenderness palpation diffusely, no guarding or rebound, negative Bell's and McBurney's point tenderness Skin: Warm, dry, no erythema, no rash. [] Back: No tenderness, no CVA tenderness. [] Extremities: No deformities, range of motion grossly intact, no lower extremity edema [] Neurologic: Alert and oriented X 3, no focal deficits noted. [] Psychologic: Affect normal, judgement normal, mood normal. [] Current Patient Data: Labs: Laboratory Tests Test 10/13/20 10:10 White Blood Count 18.7 x10^3/uL (4.0-11.0) H Red Blood Count 5.03 x10^6/uL (3.50-5.40) Hemoglobin 15.7 g/dL (12.0-15.5) H Hematocrit 46.7 % (36.0-47.0) Mean Corpuscular Volume 93 fL (79-100) Mean Corpuscular Hemoglobin 31 pg (25-35) Mean Corpuscular Hemoglobin Concent 34 g/dL (31-37) Red Cell Distribution Width 12.9 % (11.5-14.5) Platelet Count 298 x10^3/uL (140-400) Neutrophils (%) (Auto) 92 % (31-73) H Lymphocytes (%) (Auto) 3 % (24-48) L Monocytes (%) (Auto) 5 % (0-9) Eosinophils (%) (Auto) 0 % (0-3) Basophils (%) (Auto) 0 % (0-3) Neutrophils # (Auto) 17.1 x10^3uL (1.8-7.7) H Lymphocytes # (Auto) 0.6 x10^3/uL (1.0-4.8) L Monocytes # (Auto) 0.9 x10^3/uL (0.0-1.1) Eosinophils # (Auto) 0.1 x10^3/uL (0.0-0.7) Basophils # (Auto) 0.1 x10^3/uL (0.0-0.2) Platelet Estimate Pending Vital Signs: Vital Signs Date Time Temp Pulse Resp B/P (MAP) Pulse Ox O2 Delivery O2 Flow Rate FiO2 10/13/20 09:56 97.6 96 14 116/65 (82) 100 Room Air EKG: EKG: [] Radiology/Procedures: Radiology/Procedures: [] Heart Score: Risk Factors: Risk Factors: DM, Current or recent (<one month) smoker, HTN, HLP, family history of CAD, obesity. Risk Scores: Score 0 - 3: 2.5% MACE over next 6 weeks - Discharge Home Score 4 - 6: 20.3% MACE over next 6 weeks - Admit for Clinical Observation Score 7 - 10: 72.7% MACE over next 6 weeks - Early Invasive Strategies Course & Med Decision Making: Course & Med Decision Making Pertinent Labs and Imaging studies reviewed. (See chart for details) Vital signs stable labs unremarkable, tolerating p.o. with Zofran. Discussed return precautions and will send home prescription for Zofran [] Dragon Disclaimer: Isaac Disclaimer: This electronic medical record was generated, in whole or in part, using a voice recognition dictation system. Departure Departure: Impression: Primary Impression: Nausea, vomiting, and diarrhea Disposition: 01 DC HOME SELF CARE/HOMELESS Condition: STABLE Referrals: ROLAND ROSALES (PCP) Patient Instructions: Diet for Diarrhea, Adult Scripts Ondansetron (ONDANSETRON ODT) 4 Mg Tab.rapdis 1 TAB PO PRN Q6-8HRS PRN for NAUSEA for 3 Days, #10 TAB Prov: LOLA NEWTON MD 10/13/20 LOLA NEWTON MD Oct 13, 2020 10:53
[2020-10-13 11:05] LABS: CALCIUM 8.9 mg/dL (8.5-10.1); CREATININE 0.6 mg/dL (0.6-1.0); GFR 121.8; POTASSIUM 3.6 mmol/L (3.5-5.1)
[2020-10-13 11:14] LABS: ALBUMIN 4.4 g/dL (3.4-5.0); ALBUMIN/GLOBULIN RATIO 1.2 (1.0-1.7); TOTAL BILIRUBIN 0.7 mg/dL (0.2-1.0); TOTAL PROTEIN 8.1 g/dL (6.4-8.2)
[2020-10-13 11:19] LABS: BACTERIA,URINE 0 /HPF (0-FEW); BILIRUBIN,URINE NEG (NEG); CLARITY,URINE HAZY; COLOR,URINE YELLOW; GLUCOSE,URINE NEG (NEG); NITRITE,URINE NEG (NEG); SQUAMOUS EPITHELIAL CELL,UR MANY /LPF; UROBILINOGEN,URINE 0.2 mg/dL (0.2 mg/dL)
[2020-10-13] MEDS ORDERED: ONDA4TAB12 PO (11:28)
[2020-10-13 11:53] VITALS: BP 104/64
[2020-10-13 14:47] LABS: % EOS 1 % (0-5); % LYMPHS 3 % (24-48); % MONOS 3 % (0-10); % SEGS 93 % (35-66)
[2020-10-13 14:48] LABS: PLT ESTIMATE ADEQUATE (ADEQUATE)
== END 2020-10-13 11:55 | disposition home or self-care (01) ==
LOC: ER 09:48
DX: R11.2 Nausea with vomiting, unspecified (principal); R19.7 Diarrhea, unspecified; R10.84 Generalized abdominal pain; F17.210 Nicotine dependence, cigarettes, uncomplicated; Z91.011 Allergy to milk products
CPT/HCPCS: 36415; 80053; 81001; 81025; 83690; 85007; 85025; 96361; 96374; 96376; 99284; J2405; J7030

== ENCOUNTER → 2021-01-31 | Outpatient (CLI) | payer OTHER ==
[~2021-01-31] MED LIST changes: +ONDA4TAB12 PO
--- NOTE | 2021-01-31 13:18 | RAD ---
INDICATION: 25 year-old female presents for evaluation of a region of left breast pain in the latera l, inferior left breast TECHNIQUE: Targeted high resolution sonography of the region of clinical concern was performed. COMPARISON: None FINDINGS: Sonographic evaluation of the area of focal concern demonstrates unremarkable fibroglandula r tissue without evidence for suspicious cystic or solid mass or other significant sonographic findin g. IMPRESSION: No sonographic evidence of malignancy. RECOMMENDATION: The patient's focal breast complaint should be further managed clinically. Recommend starting annual screening mammography at age 40. BI-RADS 1: Negative Electronically signed by: Gallito Malone MD (01/31/2021 1:15 PM) [id number]
== END ==
LOC: US 12:48
PROVIDERS: ATTEND Physician Assistant Medical
DX: N64.4 Mastodynia (principal)
CPT/HCPCS: 76641

== ENCOUNTER → 2021-12-24 | Outpatient (CLI) | payer OTHER ==
--- NOTE | 2021-12-26 11:43 | RAD ---
XR ABDOMEN 2V INDICATION: LOW PELVIC PAIN COMPARISON: None. TECHNIQUE: Supine and upright views of the abdomen were obtained. FINDINGS: Nonobstructive bowel gas pattern. No free air. Lower chest demonstrates no acute abnormality. No acute osseous abnormality. IMPRESSION: Nonobstructive bowel gas pattern. Electronically signed by: Edin Clark MD (12/25/2021 9:56 AM) [id number]
== END ==
LOC: RAD 16:05
PROVIDERS: ATTEND Physician Assistant
DX: R14.3 Flatulence (principal)
CPT/HCPCS: 74019